=== PATIENT | male | born 1960 | race Caucasian/White ===

== ENCOUNTER 2024-01-25 10:15 | Emergency (ER) | payer MEDICARE, SELFPAY ==
--- NOTE | ~2024-01-25 | XR_ITS ---
EXAMINATION: XR SHOULDER, RIGHT CLINICAL INFORMATION: Fall COMPARISON: None available. TECHNIQUE: Three views of the right shoulder. FINDINGS: No acute visible fracture or dislocation. Joint spaces and alignment are maintained. Soft tissues are unremarkable. Visualized portions of the right chest are unremarkable. XR/XR shoulder RT min 2V IMPRESSION: No acute visible fracture or dislocation.
[2024-01-25 10:18] VITALS: BP 176/108; PULSE 96; RESP 18; TEMP 37.1; O2SAT 96; BMI 23.0
--- NOTE | 2024-01-25 11:33 | ED.EXTPRO ---
HPI - Extremity Problem General Chief complaint: Extremity Injury, Upper Stated complaint: r shoulder inj Time Seen by Provider: 01/25/24 11:23 Source: patient Mode of arrival: ambulatory Limitations: no limitations History of Present Illness ED Provider: Augusta HAMILTON Narrative: Patient is a 63-year-old [id number] male presenting to the emergency department with complaint of right shoulder pain after a fall last night. Patient states that he tripped and fell directly onto his right shoulder, did not have time to put his arms out to brace himself. States that he tripped, did not have dizziness or lightheadedness prior to the fall. Denies head strike or loss of consciousness. He is not anticoagulated. Denies headache. Denies current neck or back pain. Complains of increased pain with any movement. Took Tylenol prior to arrival with little relief. MD Complaint: joint pain Onset (ago): hour(s) Pain Consistency: constant Location: right and upper extremity Quality: aching Radiation: none Relieving factors: rest Exacerbating factors: range of motion and palpation Associated symptoms: denies other symptoms Related Data Previous Rx's ?Medication ?Instructions ?Recorded lidocaine 5 % topical patch 1 patch topical DAILY #15 ea 01/25/24 oxycodone 5 mg tablet 5 mg PO Q8H PRN severe pain (scale 01/25/24 score 7-10) #6 tabs Allergies Allergy/AdvReac Type Severity Reaction Status Date / Time No Known Allergies Allergy Verified 01/25/24 10:20 Review of Systems Review of Systems: As per HPI. Yes all other systems are reviewed and are negative Constitutional: Constitutional: Reports as per HPI [facility] Social History Social History Advance Directives: No Advance Directives Information Provided: Yes Physical Exam Vital Signs: Vital Signs: Last Vital Signs Temp 98.6 F 01/25/24 12:00 Pulse 66 01/25/24 12:00 Resp 18 01/25/24 10:18 BP 176/88 H 01/25/24 12:00 Pulse Ox 95 01/25/24 12:00 O2 Del Method Room Air 01/25/24 12:00 BMI result Body Mass Index 23.0 Vital signs have been reviewed and appear to be correct. Blood pressure elevated. Heart rate normal. Respiratory rate normal. Temperature normal. Oxygen saturation normal. Const: General: cooperative, healthy appearing and no acute distress Orientation/consciousness: oriented to person, oriented to place, oriented to time and patient oriented x3 Limitations: no limitations HEENT: Head: Yes normocephalic and Yes atraumatic Ears: external ears normal General nose exam: Normal external nose present Face and sinus: Yes face symmetric Mouth: oropharynx normal and moist mucous membranes Throat: Yes uvula midline Eyes: Pupils: Equal, round and reactive pupils present Neck: Neck: Yes normal visual inspection and Yes supple Resp: Effort & Inspection: normal respiratory effort and able to speak in complete sentences Auscultation: clear to auscultation bilaterally Cardio: Rate: regular rate Rhythm: regular rhythm Heart sounds: S1 normal heart sound present and S2 normal heart sound present GI: Palpation (GI): Soft to palpation and nontender Auscultation: normoactive bowel sounds : General: Yes no CVA tenderness Back/Spine/Pelvis: Back: no CVA tenderness Skin: General skin exam: elasticity normal and turgor normal Neuro: General: oriented to person, oriented to place, oriented to time, patient oriented x3, moves all extremities, no focal motor deficits and CN's II-XI intact bilaterally Cranial nerves: Yes Equal, round and reactive pupils present Cognition (Neuro): normal cognition Extrem: General: Yes full ROM, Yes no pedal edema and Yes no calf tenderness Right upper extremity: shoulder/upper arm Details: tenderness Location: of the proximal humerus and of the scapula and abnormal ROM (forward flexion to 90, abduction to 90, not able to externally rotate) Details: held in an abnormal fashion Details: in ADduction; no swelling, no abrasions and no ecchymosis and Extremity exam: right hand Details: vascular exam Details: radial pulse present and normal ROM of fingers Psych: Mental Status: mental status grossly normal Affect: normal affect Thought process: Normal thought process present Medications Administered Discontinued Medications Generic Name Dose Route Start Last Admin Trade Name Freq PRN Reason Stop Dose Admin Oxycodone HCl 5 mg 01/25/24 12:38 01/25/24 12:44 Oxycodone Hcl Immed Release 5 Mg Tablet PO 01/25/24 12:39 5 mg ONCE ONE Administration Medical Decision Making Medical Decision Making MDM Narrative: Patient is a 63-year-old [id number] male presenting to the emergency department with complaint of right shoulder pain after a fall last night. On exam patient is awake, A+Ox3, VS WNL, afebrile, normal neurological exam without focal deficits, physical exam findings as above. Given reported symptoms and physical exam findings, initial differential includes right shoulder contusion, strain, sprain, fracture, dislocation. X-ray notable for no acute fracture dislocation. My interpretation is in agreement with the radiologist's interpretation. Results discussed with patient and all questions answered. Advised patient to alternate Tylenol ibuprofen, apply ice to the affected area, perform gentle [id number]-[id number]-[id number] exercises daily. Will refer to orthopedics for any ongoing symptoms. 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 Return precautions discussed. Patient verbalized understanding of and agreement with plan. Differential Diagnosis Differential Diagnoses: The differential diagnosis associated with the presentation includes As per MDM. Independent Interpretation I performed an independent interpretation of an: Plain X-Ray Interpretation: No acute fracture or dislocation right shoulder Radiology Impression Discussion of test interpretation with radiology: I have reviewed the radiologist's reading. Radiologist Impression: XR/XR shoulder RT min 2V IMPRESSION: No acute visible fracture or dislocation. External Record Review External record reviewed: Inpatient record, Office record and Outpatient record Prescription Management I considered prescription management with: Pain Medication Discharge Plan Discharge Clinical Impression: Contusion of left shoulder Patient Disposition: Home, Self-Care Instructions: Contusion in Adults (ED), Shoulder Pain (ED) Additional Instructions: You have been evaluated in the emergency department today for right shoulder pain. Your x-rays did not show evidence of any fracture or dislocation. We recommend you apply ice to the area for 10-15 minutes at a time several times daily, using caution not to apply ice directly to skin. We recommend you take 600mg ibuprofen every 6 hours or 650mg Tylenol every 6 hours as needed for pain. If needed you can alternate these medications and take 1 medication every 3 hours. For instance at noon take ibuprofen, then at 3:00 p.m. take Tylenol, then at 6:00 p.m. take ibuprofen. You are being prescribed a few oxycodone for severe pain, please take this as prescribed. You are also being prescribed topical lidocaine patches which you can wear for up to 12 hours in a 24 hour period. Do not apply heat directly over the patches. Please schedule an appointment for follow-up with your primary care provider this week. You are being referred to orthopedics for any ongoing symptoms. Return to the emergency department if you experience worsening pain, numbness, tingling, change of color in your arm, or any other concerning symptoms. Prescriptions: New lidocaine 5 % adhesive patch,medicated 1 patch topical DAILY Qty: 15 0RF Rx Instructions: leave on most painful area for up to 12 hrs oxycodone 5 mg tablet 5 mg PO Q8H PRN (Reason: severe pain (scale score 7-10)) Qty: 6 0RF Rx Instructions: Partial Fill upon patient request. Referrals: [facility] [Provider Group] Stand Alone Forms: Work/School Release Print Language: French
[2024-01-25 12:00] VITALS: BP 176/88; PULSE 66; TEMP 37; O2SAT 95
[2024-01-25] MEDS: oxyCODONE HCl Immed Release 5 MG TABLET PO (12:44)
[2024-01-25 14:26] VITALS: BP 168/71; PULSE 70; RESP 16; TEMP 36.1; O2SAT 95
== END 2024-01-25 14:27 | disposition home or self-care (01) ==
PROVIDERS: Emergency Provider Emergency Medicine; PCP Internal Medicine
DX: S40.011A Contusion of right shoulder, initial encounter (principal); W01.0XXA Fall on same level from slipping, tripping and stumbling without subsequent striking against object, initial encounter; Y93.9 Activity, unspecified; Y92.9 Unspecified place or not applicable; Y99.9 Unspecified external cause status
CPT/HCPCS: 73030; 99283

== ENCOUNTER 2024-02-08 10:49 | Outpatient (AMB) | payer MEDICARE, SELFPAY ==
--- NOTE | 2024-02-08 11:00 | MHC.OFFVIS ---
Vital Signs 02/08/24 11:01 Height 5 ft 8 in Weight 151 lb BMI 23.0 Intake Visit Reasons: Right shoulder pain Intake Note: Mr. Orellana is a 63-year-old right-hand dominant white male who presents with complaints of progressively worsening right shoulder pain and weakness. The patient states that several weeks ago he was standing in his recycling bin when the been tipped over any fell directly onto his right shoulder. Since that time he has had very little active range of motion of his right shoulder. Can not lift his hand to shoulder height. He has been doing physical therapy exercises which aggravated his pain. He has also tried Tylenol, anti-inflammatory medicines and oxycodone which gave him minimal relief. Denies any weakness or pain in his right shoulder prior to this injury. Allergies No Known Allergies Allergy (Verified 02/08/24 11:12) Medication List - Last Reconciled 02/08/24 by Jasiel Louise MD lidocaine 5% 1 patch topical DAILY oxycodone 5 mg PO Q8H PRN PFSH Surgical History (Updated 02/08/24 @ 11:14 by WHITNEY Orr) History of spinal fusion Hx laparoscopic cholecystectomy Social History (Updated 02/08/24 @ 11:14 by WHITNEY Orr) Alcohol intake: current Patient Tobacco Use Status: Current everyday Tobacco user Use of substances other than those prescribed or required for medical reasons: No Physical Exam Vital Signs: BMI result Body Mass Index 23.0 Const Other: Well-nourished well-developed very friendly male awake alert and oriented x3 in no acute distress Extrem Other: Bilateral upper extremity examination shows good capillary refill, no skin lesions noted, normal sensation light touch Right shoulder examination shows limited active range of motion but full passive range of motion when compared to his left shoulder, 2/5 strength with supraspinatus testing, positive impingement signs, no instability Results Reviewed Results Reviewed: X-rays of the patient's right shoulder show moderate to severe acromioclavicular joint narrowing, a type 2 acromion, no acute bony abnormalities Assessment & Plan Assessment & Plan (1) Right shoulder pain: Code(s): M25.511 - Pain in right shoulder Plan Mr. Orellana presents with right shoulder pain and weakness most likely due to an acute rotator cuff tear. Thus, I will send the patient for an MRI of his right shoulder for further evaluation. I will see him back once the MRI is completed to discuss findings and treatment options. If he does have a full-thickness tear I will recommend surgical repair to optimize his future functional level. Feel free to call me at any time should questions regarding his orthopedic management arise. Thank you very much for asking me to see this very friendly gentleman. I spent 22 minutes in reviewing the patient's records and imaging studies, seeing the patient and documenting in the medical record. Orders: Orders MR shoulder RT wo con Today M25.311 - Other instability, right shoulder Coding Level of Care Code New Pt Level 3 (47945) Diagnoses Right shoulder pain M25.511
[2024-02-08 11:01] VITALS: BMI 23.0
== END 2024-02-08 11:35 | disposition home or self-care (01) ==
LOC: HO.HOS 10:49
PROVIDERS: PCP Internal Medicine; Visit Provider Orthopaedic Surgery
DX: M25.511 Pain in right shoulder (principal)
CPT/HCPCS: 99203

== ENCOUNTER → 2024-02-08 10:49 | Outpatient (BNVA) | payer MEDICARE, SELFPAY | PROVIDERS: PCP Internal Medicine; Visit Provider Orthopaedic Surgery | DX: M25.511 Pain in right shoulder (principal) | CPT/HCPCS: 99202 ==

== ENCOUNTER 2024-03-06 16:00 | Outpatient (REF) | payer MEDICARE, SELFPAY ==
--- NOTE | ~2024-03-06 | MR_ITS ---
EXAMINATION: MR SHOULDER WITHOUT CONTRAST, RIGHT CLINICAL INFORMATION: Right shoulder pain COMPARISON: None available. TECHNIQUE: MRI of the shoulder without contrast was performed on a high-field scanner. FINDINGS: ROTATOR CUFF: Mild infraspinatus tendinosis. Probable ill-defined undersurface fraying with a 1.7 cm elongated intramuscular cyst extending medially. Subscapularis insertional tendinosis and a focus of calcific tendinitis at the inferior insertion. The rotator cuff is otherwise intact. No muscle atrophy or fatty infiltration. BICEPS: Normal. CORACOACROMIAL ARCH: The undersurface of the acromion is flat with no subacromial spur. Mild acromioclavicular osteoarthritis. LABRUM/CAPSULE: Normal. GLENOHUMERAL JOINT/MARROW: No focal articular cartilage defect or joint effusion. MR/MR shoulder RT wo con IMPRESSION: 1. Mild infraspinatus tendinosis with ill-defined undersurface fraying and a 1.7 cm intramuscular cyst extending medially. 2. Subscapularis insertional tendinosis with a focus of calcific tendinitis at the inferior insertion. 3. Mild acromioclavicular osteoarthritis.
== END 2024-03-06 16:01 | disposition home or self-care (01) ==
LOC: HO.MRI 16:00
PROVIDERS: PCP Internal Medicine; Visit Provider Orthopaedic Surgery
DX: M25.311 Other instability, right shoulder (principal)
CPT/HCPCS: 73221

== ENCOUNTER 2024-03-20 07:54 | Outpatient (AMB) | payer MEDICARE, SELFPAY ==
--- NOTE | 2024-03-20 07:59 | A.OFFVIS_ITS ---
Intake Visit Reasons: OV- MRI review right shoulder, DOI 01/24/24 Intake Note: Mr. Orellana is a 63-year-old right-hand dominant white male who presents with complaints of progressively worsening right shoulder pain. The patient states that several months ago he was standing in his recycling bin when the been tipped over any fell directly onto his right shoulder. Since that time he has had very little active range of motion of his right shoulder. The patient reports difficulty lifting his right hand above shoulder height. He has been doing physical therapy exercises which aggravated his pain. He has also tried Tylenol, anti-inflammatory medicines and oxycodone which gave him minimal relief. Denies any weakness or pain in his right shoulder prior to this injury. Allergies No Known Allergies Allergy (Verified 03/20/24 07:59) Medication List - Last Reconciled 03/20/24 by Jasiel Louise MD lidocaine 5% 1 patch topical DAILY PFSH Surgical History History of spinal fusion Hx laparoscopic cholecystectomy Social History Alcohol intake: current Patient Tobacco Use Status: Current everyday Tobacco user Physical Exam Const Other: Well-nourished well-developed very friendly male awake alert and oriented x3 in no acute distress Extrem Other: Bilateral upper extremity examination shows good capillary refill, no skin lesions noted, normal sensation light touch Right shoulder examination shows decreased range of motion when compared to his left shoulder, 4+ out of 5 strength with supraspinatus testing, positive impingement signs, tenderness over his acromioclavicular joint, no instability Results Reviewed Results Reviewed: MRI of the patient's right shoulder show severe acromioclavicular joint narrowing, a type 2 acromion, signal change within the supraspinatus tendon most likely due to rotator cuff tendinosis versus a partial-thickness tear Assessment & Plan Assessment & Plan (1) Impingement of right shoulder: Code(s): M25.811 - Other specified joint disorders, right shoulder Category: Medical Plan Mr. Orellana presents with progressively worsening right shoulder pain due to impi ngement syndrome, acromioclavicular joint arthritis and rotator cuff tendinosis versus a partial-thickness tear. I had a lengthy discussion with the patient regarding the treatment options. At this point he has failed continued non operative treatments. The risks and benefits of right shoulder surgery were discussed at length with the patient. The patient wishes to proceed with surgery. Surgery will most likely involve right shoulder diagnostic arthroscopy with distal clavicle excision and acromioplasty. The patient will be scheduled for next available date. He will follow-up as instructed. Feel free to call me at any time should questions regarding his orthopedic management arise. I spent 22 minutes in reviewing the patient's records and imaging studies, seeing the patient and documenting in the medical record. Coding Level of Care Code Est Pt Level 3 (16258) Diagnoses Impingement of right shoulder M25.811
== END 2024-03-20 08:18 | disposition home or self-care (01) ==
PROVIDERS: PCP Internal Medicine; Visit Provider Orthopaedic Surgery
DX: M75.41 Impingement syndrome of right shoulder (principal); M19.011 Primary osteoarthritis, right shoulder; M25.811 Other specified joint disorders, right shoulder
CPT/HCPCS: 99213

== ENCOUNTER → 2024-03-20 07:54 | Outpatient (BNVA) | payer MEDICARE, SELFPAY | PROVIDERS: PCP Internal Medicine; Visit Provider Orthopaedic Surgery | DX: M25.811 Other specified joint disorders, right shoulder (principal) | CPT/HCPCS: 99212 ==

== ENCOUNTER 2024-04-08 12:26 | Day surgery (SDC) | payer MEDICARE, SELFPAY ==
[2024-04-05 11:48] VITALS: BP 154/81; PULSE 73; RESP 17; O2SAT 97; BMI 22.8
--- NOTE | 2024-04-05 12:23 | ECG_ITS ---
Test Reason : PREOP Blood Pressure : / mmHG Vent. Rate : 058 BPM Atrial Rate : 058 BPM P-R Int : 170 ms QRS Dur : 094 ms QT Int : 376 ms P-R-T Axes : 048 027 033 degrees QTc Int : 369 ms Sinus bradycardia Minimal voltage criteria for LVH, may be normal variant ( Sokolow-Kunz ) Borderline ECG No previous ECGs available Referred By: Katey Patel Electronically Signed By:CHIKA COOLEY
[2024-04-05 12:45] LABS: MANUAL DIFF FLAG NO
[2024-04-05 13:05] LABS: Basophils Absolute Auto 0.1 X10*3/uL (0.0-0.2); Basophils Percent Auto 0.8 % (0-2); Eosinophils Absolute Auto 0.2 X10*3/uL (0.0-0.4); Eosinophils Percent Auto 1.9 % (0-4); Hematocrit 44.2 % (42.0-52.0); Hemoglobin 15.6 g/dl (14.0-18.0); Imm Gran Abs Auto 0.03 X10*3/uL (0.00-0.03); Imm Gran Pct Auto 0.4 % (0.0-0.4); Lymphocytes Absolute Auto 1.9 X10*3/uL (1.2-4.9); Lymphocytes Percent Auto 24.3 % (20-40); Mean Corpuscular HGB Conc 35.3 g/dl (31.0-36.0); Mean Corpuscular Hemoglobin 33.2 pg (27.0-33.0); Mean Platelet Volume 9.1 fL (9.4-12.4); Monocytes Absolute Auto 0.9 X10*3/uL (0.1-1.2); Monocytes Percent Auto 11.6 % (2-11); Neutrophils Absolute Auto 4.8 x10*3/uL (2.0-8.3); Platelet Count 226 X10*3/uL (160-400); Red Cell Distribution Width 12.2 % (11.0-16.0); White Blood Count 7.8 X10*3/uL (4.8-10.8)
[2024-04-05 13:30] LABS: Anion Gap 13 (12-20); Blood Urea Nitrogen 14 mg/dL (9-16); Calcium 9.7 mg/dL (8.4-10.2); Carbon Dioxide 25 mmol/L (22-29); Chloride 107 mmol/L (96-108); Creatinine Clr Calc Pharmacy 90.9; Estimated Glomerular Filt Rate > 60; Glucose Random 95 mg/dL (60-115); Potassium 4.5 mmol/L (3.3-5.1); Sodium 140 mmol/L (135-145)
[2024-04-08] VITALS (8 sets, daily range): BP systolic 82–158; BP diastolic 43–98; PULSE 51–73; RESP 12–16; TEMP 36.1–36.7; O2SAT 95–99
[2024-04-08] MEDS: Lactated Ringers 1,000 ML 100 ML IVCONT (13:11)
--- NOTE | 2024-04-08 13:19 | P.CONAN_ITS ---
HPI - Anesthesia Eval Consult details Narrative: right shoulder impingement PMFSH Active Problems Active Problems: All Active Problems Impingement of right shoulder (Acute) Past Medical History Medical History History of fracture of hand Back pain Tobacco use disorder Pancreatitis Family History Family history of problems with anesthesia: No Surgical History Surgical History Hx of hand surgery History of spinal fusion Hx laparoscopic cholecystectomy History of Problems with Anesthesia: No Social History Social History Are you a primary children's zoo caretaker to a significant other at home: No Do you presently have visiting nurse or other home services: No Alcohol intake: current Alcohol intake frequency: a few times a month Patient Tobacco Use Status: Current everyday Tobacco user Tobacco use type: Cigarette Cigarette Packs Per Day: 1.0 Cigarettes Per Day: 20.0 Use of substances other than those prescribed or required for medical reasons: No Have you been hit, kicked, punched, or otherwise hurt by someone within the past year? If so, by whom?: No Are you DNR?: No Advance Directives: No Advance Directives Information Provided: Yes Advance Directives on File: No Recently lost weight without trying: No Eating poorly because of decreased appetite: No Nutrition Risks: No Nutritional Risk Poor oral hygiene: Yes (full upper and lower dentures) Meds Allergies Allergy/AdvReac Type Severity Reaction Status Date / Time No Known Allergies Allergy Verified 03/20/24 07:59 Active Medications: Current Medications Lactated Ringer's (Lr) 1,000 mls @ 100 mls/hr IVCONT .Q10H ON LICENSE OF [facility] Last Admin: 04/08/24 13:11 Dose: 100 mls/hr Home Medications ?Medication ?Instructions ?Recorded ?Confirmed ?Last Taken ?Type acetaminophen 325 mg tablet 650 mg PO Q4H PRN Pain 04/05/24 04/05/24 Unknown History Exam Height,Weight and Vital Signs: Height 5 ft 8 in Weight 68.039 kg Last Vital Signs Temp 98.0 F 04/08/24 13:04 Pulse 73 04/08/24 13:04 Resp 16 04/08/24 13:04 BP 158/98 H 04/08/24 13:04 Pulse Ox 99 04/08/24 13:04 O2 Del Method Room Air 04/08/24 13:04 Pertinent Lab Results Pertinent Lab Results: Laboratory Tests 04/05/24 12:44 WBC 7.8 RBC 4.70 Hgb 15.6 Hct 44.2 MCV 94.0 MCH 33.2 H MCHC 35.3 RDW 12.2 Plt Count 226 MPV 9.1 L Immature Gran % (Auto) 0.4 Neut % (Auto) 61.0 Lymph % (Auto) 24.3 [place] % (Auto) 11.6 H Eos % (Auto) 1.9 Baso % (Auto) 0.8 Lymph # (Auto) 1.9 [place] # (Auto) 0.9 Eos # (Auto) 0.2 Baso # (Auto) 0.1 Abs Immat Gran (auto) 0.03 Absolute Neuts (auto) 4.8 Absolute Nucleated RBC 0.000 Nucleated RBC % (auto) 0.0 Sodium 140 Potassium 4.5 Chloride 107 Carbon Dioxide 25 Anion Gap 13 BUN 14 Creatinine 0.81 Estim Creat Clear Calc 90.9 Estimated GFR > 60 Random Glucose 95 Calcium 9.7 Airway Mallampati Class: II TM Dist: >3cm Neck ROM: Full Heart: rrr Lungs: cta Assessment and Plan Assessment Anesthesia Assessment: Anesthesia Plan Discussed and Smoking Cess. Discussed Final Anesthetic Review Family History of Problems with Anesthesia: No History of Problems with Anesthesia: No ASA Class: II (spinal fusion) Final Preanesthetic Review: No Changes in Pt Med Stat, Meds/Allgs Chart Reviewed, Consent Obtained/Reviewed and Anes Risks/Benef Reviewed Patient Risk: Low Procedure Risk: Intermediate Anesthetic Plan Anesthetic Plan: GA and Regional Block Disposition: Standard PACU
--- NOTE | 2024-04-08 15:41 | PM.OP ---
Brief Operative Note Date of Service: 04/08/24 Pre-op diagnosis: Right shoulder impingement syndrome, right shoulder acromioclavicular joint arthritis Post-op diagnosis: same Procedure: Right shoulder arthroscopic distal clavicle excision, right shoulder arthroscopic acromioplasty Implants: None Surgeon: Jasiel Louise MD Anesthesia: GETA and regional Was an Newspaper Photographer used for this Procedure?: No Estimated blood loss (mL): 10 Pathology: none sent Condition: stable Disposition: PACU
--- NOTE | 2024-04-08 15:42 | W.PM.OPN ---
Operative Note Operative Note Date of Service: 04/08/24 Narrative: After the patient was identified as Parker Orellana and his right shoulder was initialed by myself the patient was brought to the holding area where a right shoulder interscalene regional block was performed by the anesthesiologist in routine fashion. The patient was then brought to the operating room where general anesthesia was induced by the anesthesiologist in routine fashion. The patient was given 2 g of IV Ancef preoperatively for infection prophylaxis. Examination under anesthesia of the patient's right shoulder showed full passive range of motion of the patient's left shoulder when compared to the left. The patient was gently positioned in the beach chair position with all bony prominences well padded. The patient's right shoulder region and upper extremity were prepped and draped in sterile fashion. A formal time-out was completed. A #11 scalpel blade was used to make a posterior portal 2 cm inferior and 1 cm medial to the posterolateral corner of the acromion. Blunt trocar technique was used to enter the glenohumeral joint in routine fashion. An anterior portal was made just lateral to the coracoid process after proper positioning was confirmed using a spinal needle. Diagnostic arthroscopy showed minimal degenerative changes of the glenoid and humeral head articular surfaces. There was no evidence of rotator cuff tearing. There was no evidence of injury to the biceps tendon or its insertion onto the glenoid. There was no inflammation of the anterior joint capsule. The arthroscope was then placed from the posterior portal into the subacromial space. A lateral portal was made 2 fingerbreadths lateral to the anterior lateral corner of the acromion. The ArthroCare Wand was used to ablate soft tissues along the undersurface of the acromion as well as to excise the coracoacromial ligament. There was a sharp spur along the undersurface of the acromion which was removed using the hooded bur. The arthroscope was then placed into the lateral portal and the acromioplasty was completed with the bur in the posterior portal using the posterior aspect of the acromion as a cutting block. The ArthroCare Wand was then brought in through the anterior portal and was used to ablate soft tissues along the acromioclavicular joint and distal clavicle. The posterior and superior ligamentous structures were left intact. A distal clavicle excision of 8 mm was performed using the hooded bur. Any remaining bursal tissue was removed using the arthroscopic shaver. The subacromial space was irrigated and then drained. All arthroscopic instruments were removed. The 3 portals were closed with 3-0 nylon interrupted suture. The subacromial space was injected with Marcaine. Dry sterile dressing was placed over all incisions. The patient's right upper extremity was placed into a sling. The patient was awoken and extubated in the operating room. The patient was transferred to the recovery room in stable condition.
[2024-04-08] MEDS: cefTRIAXone sodium 1 GM in 0.9 % Sodium Chloride 50 ML IV (15:48)
[2024-04-08] MEDS: ondansetron HCL 4 MG/2 ML VIAL IVPUSH (16:31)
== END 2024-04-08 17:18 | disposition home or self-care (01) ==
PROVIDERS: Anesthesiology; PCP Internal Medicine; Visit Provider Orthopaedic Surgery
PROC: (CPT 29805; principal; 2024-04-08 14:00)
DX: M75.41 Impingement syndrome of right shoulder (principal); M19.011 Primary osteoarthritis, right shoulder; M25.511 Pain in right shoulder; Z91.81 History of falling; Z98.1 Arthrodesis status; Z90.49 Acquired absence of other specified parts of digestive tract; Z87.81 Personal history of (healed) traumatic fracture; Z87.19 Personal history of other diseases of the digestive system; Z79.899 Other long term (current) drug therapy; F17.210 Nicotine dependence, cigarettes, uncomplicated
CPT/HCPCS: 29824; 29826; 36415; 80048; 85025; 93005; J0171; J0665; J0690; J0696; J1100; J2250; J2405; J2704; J2795; J3010

== ENCOUNTER → 2024-04-08 12:26 | Outpatient (BNV) | payer MEDICARE, SELFPAY | PROVIDERS: PCP Internal Medicine; Visit Provider Orthopaedic Surgery | DX: M75.41 Impingement syndrome of right shoulder (principal); M19.011 Primary osteoarthritis, right shoulder | CPT/HCPCS: 29824; 29826 ==

== ENCOUNTER 2024-04-23 11:40 | Outpatient (AMB) | payer MEDICARE, SELFPAY ==
--- NOTE | 2024-04-23 11:41 | A.OFFVIS_ITS ---
Intake Visit Reasons: PO RT shoulder 04/08/24 Intake Note: Mr. Orellana presents for his 1st postoperative visit after undergoing right shoulder arthroscopic surgery on April 08 1024. He reports mild to moderate discomfort in his right shoulder. He continues with his home. He does take oxycodone which gives him good relief. Allergies No Known Allergies Allergy (Verified 04/23/24 11:44) Medication List - Last Reconciled 04/23/24 by Jasiel Louise MD acetaminophen 650 mg PO Q4H PRN oxycodone 10 mg (2 x 5 mg) PO Q4H PRN 1 week PFSH Medical History History of fracture of hand Back pain Tobacco use disorder Pancreatitis Surgical History Hx of hand surgery History of spinal fusion Hx laparoscopic cholecystectomy Social History Are you a primary district manager primary care sales to a significant other at home: No Do you presently have visiting nurse or other home services: No Alcohol intake: current Alcohol intake frequency: a few times a month Patient Tobacco Use Status: Current everyday Tobacco user Tobacco use type: Cigarette Cigarette Packs Per Day: 1.0 Cigarettes Per Day: 20.0 Physical Exam Extrem Other: Right shoulder examination shows that the surgical incisions are healing well, no erythema, mild discomfort with gentle range of motion Assessment & Plan Assessment & Plan (1) Impingement of right shoulder: Code(s): M25.811 - Other specified joint disorders, right shoulder Category: Medical Plan Mr. Orellana is doing well after undergoing right shoulder arthroscopic surgery on 04/08/2024. His sutures were removed and Steri-Strips placed over his incisions. I did give him a prescription to go to formal physical therapy. I also refilled his prescription for oxycodone. He will contact me prior to his follow-up appointment in 6 weeks should any questions or concerns arise. Feel free to call me at any time should questions regarding his orthopedic management arise. Orders: Orders PT Evaluation and Treatment Today M25.811 - Other specified joint disorders, right shoulder Medications: Changed From oxycodone Partial Fill upon patient request. 10 mg (2 x 5 mg) PO Q4H 1 week PRN 40 tabs 0RF pain To oxycodone Partial Fill upon patient request. 10 mg (2 x 5 mg) PO Q6H PRN 40 tabs 0RF pain Coding Level of Care Code Global (12733) Diagnoses Impingement of right shoulder M25.811
== END 2024-04-23 11:56 | disposition home or self-care (01) ==
PROVIDERS: PCP Internal Medicine; Visit Provider Orthopaedic Surgery
DX: M25.811 Other specified joint disorders, right shoulder (principal)
CPT/HCPCS: 99024

== ENCOUNTER → 2024-04-23 11:40 | Outpatient (BNVA) | payer MEDICARE, SELFPAY | PROVIDERS: PCP Internal Medicine; Visit Provider Orthopaedic Surgery | DX: M25.811 Other specified joint disorders, right shoulder (principal); Z79.891 Long term (current) use of opiate analgesic | CPT/HCPCS: 99212 ==

== ENCOUNTER 2024-06-04 09:38 | Outpatient (AMB) | payer MEDICARE, SELFPAY ==
--- NOTE | 2024-06-04 09:39 | A.OFFVIS_ITS ---
Intake Visit Reasons: PO RT shoulder 04/08/24 Intake Note: Parker is a 64 year old male who presents with complaints of mild to moderate discomfort in his right shoulder after undergoing right shoulder arthroscopic surgery on on 04/08/2024. He continues with his home stretching program. He would like to go to formal physical therapy. He denies any fevers or chills. Allergies No Known Allergies Allergy (Verified 06/04/24 09:44) Medication List - Last Reconciled 06/04/24 by Jasiel Louise MD acetaminophen 650 mg PO Q4H PRN PFSH Medical History History of fracture of hand Back pain Tobacco use disorder Pancreatitis Surgical History Hx of hand surgery History of spinal fusion Hx laparoscopic cholecystectomy Social History Are you a primary healthcare insurance sales agent to a significant other at home: No Do you presently have visiting nurse or other home services: No Alcohol intake: current Alcohol intake frequency: a few times a month Patient Tobacco Use Status: Current everyday Tobacco user Tobacco use type: Cigarette Cigarette Packs Per Day: 1.0 Cigarettes Per Day: 20.0 Physical Exam Extrem Other: Right shoulder examination shows that the surgical incisions are well healed, no erythema, almost full range of motion when compared to his left shoulder, 4+ out of 5 strength with supraspinatus testing, no instability Assessment & Plan Assessment & Plan (1) Right shoulder pain: Code(s): M25.511 - Pain in right shoulder Category: Medical Plan Parker continues to do well after undergoing right shoulder arthroscopic surgery on 04/08/2024. I did give him a prescription to go to formal physical therapy. The do's and don'ts of lifting were discussed at length with the patient. He will contact me prior to his follow-up appointment in 2 months should any questions or concerns arise. Feel free to call me at any time should questions regarding his orthopedic management arise. Orders: Orders PT Evaluation and Treatment Today M25.511 - Pain in right shoulder Coding Level of Care Code Global (25806) Diagnoses Right shoulder pain M25.511
== END 2024-06-04 09:53 | disposition home or self-care (01) ==
PROVIDERS: PCP Internal Medicine; Visit Provider Orthopaedic Surgery
DX: M25.511 Pain in right shoulder (principal)
CPT/HCPCS: 99024

== ENCOUNTER → 2024-06-04 09:38 | Outpatient (BNVA) | payer MEDICARE, SELFPAY | PROVIDERS: PCP Internal Medicine; Visit Provider Orthopaedic Surgery | DX: M25.511 Pain in right shoulder (principal) | CPT/HCPCS: 99212 ==

== ENCOUNTER 2024-08-21 08:29 | Outpatient (AMB) | payer MEDICARE, SELFPAY ==
[2024-08-21 08:30] VITALS: BMI 22.8
--- NOTE | 2024-08-21 08:30 | A.OFFVIS_ITS ---
Vital Signs 08/21/24 08:30 Height 5 ft 8 in Weight 150 lb BMI 22.8 Intake Visit Reasons: Right shoulder discomfort Intake Note: Parker is a 64 year old male who presents with complaints of mild intermittent discomfort along the lateral aspect of his right shoulder after undergoing right shoulder arthroscopic surgery on 04/08/2024. The patient continues with his home stretching program. He chose not to go to formal physical therapy. He denies any fevers or chills. He does not take any medicines for his discomfort. Allergies No Known Allergies Allergy (Verified 08/21/24 08:32) Medication List - Last Reviewed 08/21/24 by WHITNEY De Leon acetaminophen 650 mg PO Q4H PRN PFSH Medical History History of fracture of hand Back pain Tobacco use disorder Pancreatitis Surgical History Hx of hand surgery History of spinal fusion Hx laparoscopic cholecystectomy Social History Are you a primary healthcare administrative assistant to a significant other at home: No Do you presently have visiting nurse or other home services: No Alcohol intake: current Alcohol intake frequency: a few times a month Patient Tobacco Use Status: Current everyday Tobacco user Tobacco use type: Cigarette Cigarette Packs Per Day: 1.0 Cigarettes Per Day: 20.0 Physical Exam Vital Signs: BMI result Body Mass Index 22.8 Const Other: Well-nourished well-developed very friendly male awake alert and oriented x3 in no acute distress Extrem Other: Bilateral upper extremity examination shows good capillary refill, no skin lesions noted, normal sensation light touch Right shoulder examination shows that the surgical incisions are well healed, no erythema, almost full range of motion when compared to his left shoulder, 5/5 strength with supraspinatus testing, no instability Assessment & Plan Assessment & Plan (1) Right shoulder pain: Code(s): M25.511 - Pain in right shoulder Category: Medical Plan Mr. Orellana continues to do well after undergoing right shoulder arthroscopic surgery on 04/08/2024. He will continue with his home stretching program. The do's and don'ts of lifting were discussed at length with the patient. Will follow up with me on an as-needed basis should his symptoms not plateau at an unacceptable level over the next few months. Feel free to call me at any time should questions regarding his orthopedic management arise. I spent 22 minutes in reviewing the patient's records and imaging studies, seeing the patient and documenting in the medical record. Coding Level of Care Code Est Pt Level 3 (06570) Complex EM visit Add On G2211 Diagnoses Right shoulder pain M25.511
== END 2024-08-21 08:39 | disposition home or self-care (01) ==
PROVIDERS: PCP Internal Medicine; Visit Provider Orthopaedic Surgery
DX: M25.511 Pain in right shoulder (principal)
CPT/HCPCS: 99213; G2211

== ENCOUNTER → 2024-08-21 08:29 | Outpatient (BNVA) | payer MEDICARE, SELFPAY | PROVIDERS: PCP Internal Medicine; Visit Provider Orthopaedic Surgery | DX: M25.511 Pain in right shoulder (principal) | CPT/HCPCS: 99212 ==